=== PATIENT | female | born 1950 | race Hispanic/Latino ===

== ENCOUNTER 2022-06-28 20:01 | Observation (INO) | payer MEDICARE ==
[~2022-06-28] VITALS: Ht 167.6 cm; Wt 105.2 kg
[2022-06-28] MEDS ORDERED: AMIODARONE 900MG 900 MG in Premix Bag 1 BAG IV SCH (21:00)
[2022-06-28] MEDS ORDERED: AMIODARONE HCL 150 MG/100 ML BAG IV ONE (21:00)
[2022-06-28 21:02] LABS: BASOPHILS % 0.3 % (0.0-1.0); EOSINOPHILS # (AUTO) 0.2 (0.0-0.4); EOSINOPHILS % 1.9 % (0.0-6.0); HEMATOCRIT 41.1 % (34.2-44.1); HEMOGLOBIN 13.4 g/dL (12.0-16.0); LYMPHOCYTES # (AUTO) 5.1 (1.0-3.2); LYMPHOCYTES % 39.8 % (18.0-39.1); MEAN CORPUSCULAR HEMOGLOBIN 29.6 pg (28-32); MEAN CORPUSCULAR HGB CONC 32.6 g/dL (31-35); MEAN CORPUSCULAR VOLUME 90.9 fL (81-99); MONOCYTES # (AUTO) 0.8 (0.2-0.8); MONOCYTES % 6.2 % (4.4-11.3); NEUTROPHILS # (AUTO) 6.6 (2.1-6.9); NEUTROPHILS % 51.4 % (38.7-80.0); PLATELET COUNT 283 x10e3/uL (140-360); RED BLOOD COUNT 4.52 x10e6/uL (3.6-5.1); RED CELL DISTRIBUTION WIDTH 13.3 % (11.7-14.4)
[2022-06-28 21:22] LABS: ALBUMIN 3.5 g/dL (3.5-5.0); ALBUMIN/GLOBULIN RATIO 0.8 (0.8-2.0); ANION GAP 16.9 mmol/L (8-16); CALCIUM 9.7 mg/dL (8.4-10.2); CREATININE, SERUM 0.86 mg/dL (0.57-1.11); POTASSIUM 3.9 mmol/L (3.5-5.1)
[2022-06-28 21:28] LABS: CREATINE KINASE MB 0.7 ng/mL (0-5.0)
[2022-06-28] MEDS ORDERED: METOPROLOL TARTRATE 50 MG TAB PO SCH (21:30)
[2022-06-28] MEDS: METOPROLOL TARTRATE 25 MG TAB PO SCH (22:00)
[2022-06-28] MEDS ORDERED: DEXTROSE 50% SYRINGE 50 ML IV PRN (22:00)
[2022-06-28] MEDS ORDERED: SODIUM CHLORIDE 0.9% 1000ML 1,000 ML IV ONE (22:15)
[2022-06-28 23:23] VITALS: BP 116/59
[2022-06-28 23:30] VITALS: BP 107/81
[2022-06-28 23:45] VITALS: BP 116/52
[2022-06-28] MEDS ORDERED: XARELTO20 MG PO (23:56)
[2022-06-28] MEDS ORDERED: LISINOPRIL10 MG PO (23:56)
[2022-06-28] MEDS ORDERED: METFORMIN500 MG/5 M PO (23:56)
[2022-06-28] MEDS ORDERED: ATORVASTATIN CA20 MG PO (23:56)
[2022-06-28] MEDS ORDERED: CENTRUM SILVER1 EAC5 PO (23:56)
[2022-06-29] VITALS (12 sets, daily range): BP systolic 85–125; BP diastolic 36–63
[2022-06-29 04:53] LABS: BASOPHILS % 0.4 % (0.0-1.0); EOSINOPHILS # (AUTO) 0.2 (0.0-0.4); EOSINOPHILS % 2.2 % (0.0-6.0); HEMATOCRIT 35.1 % (34.2-44.1); HEMOGLOBIN 11.1 g/dL (12.0-16.0); LYMPHOCYTES # (AUTO) 4.9 (1.0-3.2); MEAN CORPUSCULAR HEMOGLOBIN 29.4 pg (28-32); MEAN CORPUSCULAR HGB CONC 31.6 g/dL (31-35); MEAN CORPUSCULAR VOLUME 92.9 fL (81-99); MONOCYTES # (AUTO) 0.8 (0.2-0.8); MONOCYTES % 6.9 % (4.4-11.3); NEUTROPHILS # (AUTO) 5.1 (2.1-6.9); NEUTROPHILS % 46.2 % (38.7-80.0); PLATELET COUNT 244 x10e3/uL (140-360); RED BLOOD COUNT 3.78 x10e6/uL (3.6-5.1); RED CELL DISTRIBUTION WIDTH 13.4 % (11.7-14.4)
[2022-06-29 05:19] LABS: CREATINE KINASE MB 0.7 ng/mL (0-5.0)
[2022-06-29 05:42] LABS: ALBUMIN/GLOBULIN RATIO 0.9 (0.8-2.0); ANION GAP 13.8 mmol/L (8-16); CALCIUM 8.3 mg/dL (8.4-10.2); CHOL/HDL RATIO 3.4 (3.0-3.6); CREATININE, SERUM 0.74 mg/dL (0.57-1.11); POTASSIUM 3.8 mmol/L (3.5-5.1)
[2022-06-29] MEDS ORDERED: INSULIN REGULAR, HUMAN 100 UNIT/1 ML SQ SCH (07:30)
[2022-06-29] MEDS: METOPROLOL TARTRATE 25 MG TAB PO SCH (09:07)
== END 2022-06-29 11:01 | disposition home or self-care (01) ==
LOC: ER 20:46 → INTOOBSV 22:24 → ERHOLD 22:24 → ICU 23:30
PROVIDERS: ADMIT Internal Medicine; ATTEND Internal Medicine
DX: I48.0 Paroxysmal atrial fibrillation (principal); Z79.01 Long term (current) use of anticoagulants; E11.9 Type 2 diabetes mellitus without complications; I10 Essential (primary) hypertension; Z20.822 Contact with and (suspected) exposure to COVID-19; I77.9 Disorder of arteries and arterioles, unspecified; Z86.16 Personal history of COVID-19
CPT/HCPCS: 36415 ×2; 70450; 71045; 80053 ×2; 80061; 82550 ×2; 82553 ×2; 84484 ×2; 85025 ×2; 93306; 94799; 99284; G0378 ×2; J7030; U0002

== ENCOUNTER 2024-07-16 16:42 | Emergency (ER) | payer MEDICARE ==
[~2024-07-16] VITALS: Ht 167.6 cm; Wt 111.1 kg
[~2024-07-16 16:42] MED LIST: ATORVASTATIN CA20 MG PO; CENTRUM SILVER1 EAC5 PO; LISINOPRIL10 MG PO; METFORMIN500 MG/5 M PO; XARELTO20 MG PO
[2024-07-16 18:52] VITALS: PULSE 59; RESP 17; TEMP 97.8
[2024-07-16] MEDS ORDERED: METHOCARBAMOL750 MG PO (18:55)
[2024-07-16 19:00] VITALS: BP 139/71; PULSE 59; RESP 17; TEMP 97.8; O2SAT 98
== END 2024-07-16 19:04 | disposition home or self-care (01) ==
LOC: ER 16:51
DX: M54.50 Low back pain, unspecified (principal); G89.29 Other chronic pain; M25.552 Pain in left hip; I10 Essential (primary) hypertension; E11.9 Type 2 diabetes mellitus without complications; E78.5 Hyperlipidemia, unspecified; I48.91 Unspecified atrial fibrillation; X50.1XXA Overexertion from prolonged static or awkward postures, initial encounter; Y92.89 Other specified places as the place of occurrence of the external cause
CPT/HCPCS: 72131; 99283